=== PATIENT | male | born 1970 | race Caucasian/White ===

== ENCOUNTER 2017-07-29 02:13 | Emergency (ER) | payer MEDICAID ==
[~2017-07-29] VITALS: Ht 170.2 cm; Wt 89.0 kg
[~2017-07-29 02:13] MED LIST: D-ME118S6 PO; IBUP-1542 PO
[2017-07-29 02:14] VITALS: Ht 170.2 cm; Wt 89.0 kg
--- NOTE | 2017-07-29 04:23 | ERD ---
ER Documentation Chief Complaint Date/Time DATE: 07/29/17 TIME: 04:22 Chief Complaint Pt reports he feels he is suffocation when trying to sleep HPI 46-year-old male presents here to emergency department for complaints of feelings of suffocation when sleeping at times. Patient he woke up feeling suffocated, feels throat discomfort, feels like something is blocking in his throat when he wakes up. Patient denies any dyspnea on exertion or dizzy on lying down. Patient denies any chest pain or palpitations. Patient denies any wheezing or cough. Patient does not have the symptoms whenever he is awake. Has been having the symptoms for the last 1 month. ROS All systems reviewed and are negative except as per history of present illness. Medications Home Meds Active Scripts Dextromethorphan Hb-Promethazine Hcl (Promethazine DM Syrup) 180 Ml Syrup, 5 ML PO Q6H Y for COUGH, #4 OZ Prov:BULMARO,GRACIELA C 01/13/16 Ibuprofen* (Motrin*) 600 Mg Tab, 600 MG PO Q6, #30 TAB Prov:BULMARO,GRACIELA C 01/13/16 Allergies Allergies: Coded Allergies: No Known Allergy (Unverified , 01/13/16) PMhx/Soc History of Surgery: No Anesthesia Reaction: No Hx Neurological Disorder: No Hx Respiratory Disorders: No Hx Cardiac Disorders: No Hx Psychiatric Problems: No Hx Miscellaneous Medical Probl: Yes (SLEEP APNEA ) Hx Alcohol Use: No Hx Substance Use: No Hx Tobacco Use: No Smoking Status: Never smoker FmHx Family History: No coronary disease, No diabetes, No other Physical Exam Vitals Vital Signs Date Time Temp Pulse Resp B/P Pulse Ox O2 Delivery O2 Flow Rate FiO2 07/29/17 02:14 98.3 65 16 157/94 97 Physical Exam GENERAL: The patient is well developed and appropriate for usual state of health, in no apparent distress. CHEST: Clear to auscultation bilaterally. There are no rales, wheezes or rhonchi. HEART: Regular rate and rhythm. No murmurs, clicks, rubs or gallops. No S3 or S4. ABDOMEN: Soft, nontender and nondistended. Good bowel sounds. No rebound or guarding. No gross peritonitis. No gross organomegaly or masses. No Patterson sign or McBurney point tenderness. BACK: No midline or flank tenderness. EXTREMITIES: Equal pulses bilaterally. There is no peripheral clubbing, cyanosis or edema. No focal swelling or erythema. Full range of motion. Grossly neurovascularly intact. NEURO: Alert and oriented. Cranial nerves 2-12 intact. Motor strength in all 4 extremities with 5/5 strength. Sensation grossly intact. Normal speech and gait. SKIN: There is no apparent rash or petechia. The skin is warm and dry. HEMATOLOGIC AND LYMPHATIC: There is no evidence of excessive bruising or lymphedema. No gross cervical, axillary, or inguinal lymphadenopathy. Results 24 hrs PROCEDURE: CT neck without contrast. CLINICAL INDICATION: Swelling. TECHNIQUE: CT of the neck was performed on a multi-detector high-resolution CT scanner. Contiguous axial images were obtained without intravenous contrast. Coronal and sagittal reformatted images were obtained. Images were reviewed on a PACS workstation. One or more of the following dose reduction techniques were used: - Automated exposure control. - Adjustment of the mA and/or kV according to patient size. - Use of iterative reconstruction technique. Exam CTD/vol = 10.01 mGy. Total exam DLP = 275.84 mGy-cm. COMPARISON: None. FINDINGS: The nasopharynx, oropharynx, hypopharynx and larynx are within normal limits. The tongue and tongue base are within normal limits. The vallecula and piriform sinuses are within normal limits. Bilateral parotid and submandibular glands are within normal limits. There are no enlarged lymph nodes. The thyroid gland is unremarkable. There is a retention cyst within the right maxillary sinus. Bilateral mastoid air cells are clear. The lung apices are clear. IMPRESSION: Unremarkable CT of the neck without contrast. Right maxillary sinus retention cyst. .Man Nieves MD, MD Date Time Electronically viewed and signed by .Man Nieves MD, MD on 07/29/2017 04:35 .T/ CC: [facility] Procedures/MDM Medical decision making: Patient's symptoms nonspecific at this time, most likely can be from sleep apnea. Patient was advised to do sleep studies with primary care doctor. No oral airway obstruction noted. No symptoms of respiratory distress at this time. No symptoms of any throat infection, or peritonsillar abscess. Patient was advised to follow-up with primary care doctor in 1-2 days for further evaluation of symptoms. Patient was advised to return to emergency department for any worsening symptoms. Disposition: Home. Stable. Departure Diagnosis: Primary Impression: Throat discomfort Condition: Stable Patient Instructions: Sleep Apnea, Sleep Apnea, Obstructive (Adult) LILIA ALICEA NP Jul 29, 2017 04:23
--- NOTE | 2017-07-29 04:35 | RADRPT ---
PROCEDURE: CT neck without contrast. CLINICAL INDICATION: Swelling. TECHNIQUE: CT of the neck was performed on a multi-detector high-resolution CT scanner. Contiguou s axial images were obtained without intravenous contrast. Coronal and sagittal reformatted images were obtained. Images were reviewed on a PACS workstation. One or more of the following dose reduction techniques were used: - Automated exposure control. - Adjustment of the mA and/or kV according to patient size. - Use of iterative reconstruction technique. Exam CTD/vol = 10.01 mGy. Total exam DLP = 275.84 mGy-cm. COMPARISON: None. FINDINGS: The nasopharynx, oropharynx, hypopharynx and larynx are within normal limits. The tongue and tongue base are within normal limits. The vallecula and piriform sinuses are within normal limits. Bilat eral parotid and submandibular glands are within normal limits. There are no enlarged lymph nodes. The thyroid gland is unremarkable. There is a retention cyst within the right maxillary sinus. Patrice ateral mastoid air cells are clear. The lung apices are clear. IMPRESSION: Unremarkable CT of the neck without contrast. Right maxillary sinus retention cyst. .Man Nieves MD, MD Date Time Electronically viewed and signed by .Man Nieves MD, MD on 07/29/2017 04:35 .T/
== END 2017-07-29 04:54 | disposition home or self-care (01) ==
LOC: FTE 02:13
DX: R07.0 Pain in throat (principal)
CPT/HCPCS: 70490; Z7502